=== PATIENT | male | born 1960 | race Caucasian/White ===

== ENCOUNTER 2017-07-06 11:35 | Observation (INO) | payer BC ==
[2017-07-06] MEDS ORDERED: Sodium Chloride 0.9% 1000 ML 1,000 ML IV STA (11:53)
[2017-07-06] MEDS ORDERED: Zofran 4 MG/2 ML VIAL IV PRN (11:53)
[2017-07-06 12:32] LABS: Mean Cell Volume 83.9 fl (78-100); Mean Platelet Volume 10.5 fl (6-9.5); Platelet Count 209 K/mm3 (150-450); Red Blood Count 5.59 M/mm3 (4.1-5.6); Red Cell Distribution Width 13.5 % (11.5-14.0); White Blood Count 10.7 K/mm3 (4.0-10.5)
[2017-07-06 12:44] LABS: ALBUMIN 4.3 g/dL (3.4-5.0); ALKALINE PHOSPHATASE 84 U/L (46-116); ANION GAP 10.9 MEQ/L (5-15); BLOOD UREA NITROGEN 19 mg/dL (9-20); CHLORIDE 109 mEq/L (98-107); Carbon Dioxide 26.2 mEq/L (21-32); Glucose 129 MG/DL (70-110); Potassium 3.8 mEq/L (3.5-5.1); SGOT/AST 11 U/L (15-37); SGPT/ALT 28 U/L (12-78); SODIUM 142 mEq/L (136-145); Total Protein 7.4 gm/dL (6.4-8.2)
[2017-07-06] MEDS: ENOXAPARIN SODIUM SQ SCH (12:47)
[2017-07-06] MEDS: Sodium Chloride 0.9% 1000 ML 1,000 ML IV SCH (12:48)
--- NOTE | 2017-07-06 14:51 | XRAY ---
Indication: Left flank pain. History of stones. Multiple contiguous axial images obtained through the abdomen and pelvis without contrast using renal stone protocol. Comparison: None Lung bases demonstrates moderate bibasilar dependent atelectasis. Heart is not enlarged. 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 Left ureter is distended up to 10 mm down to level of the distal ureter where there is a 7 mm calculus just proximal to UVJ. Left kidney also demonstrates mild hydronephrosis with additional punctate left renal calculi. No perinephric fluid. Also nonobstructing right renal calculi, largest 10 mm. Elsewhere subcentimeter hepatic calcified granuloma and previous cholecystectomy. Noncontrasted stomach and bowel loops appear nonobstructed. Normal appendix. Minimal sigmoid diverticulosis. Remaining liver, pancreas, spleen, adrenal glands, bladder, and aorta appear unremarkable for noncontrast exam. Osseous structures intact with minimal degenerative changes throughout the spine. Tiny fatty right inguinal hernia. Right lower abdominal wall demonstrates minimal subcutaneous air bubbles presumed iatrogenic. Impression: 1. 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 Additional bilateral renal micro-calculi. 2. Incidental hepatic calcified granuloma, sigmoid diverticulosis, and tiny fatty right inguinal hernia. CT DI 22.61
[2017-07-06] MEDS: Flomax 0.4 MG PO SCH (15:25)
[2017-07-06 15:48] LABS: Bilirubin NEGATIVE (NEGATIVE); Blood 250 Ery/ul (0-5); COMPLETE URINE MICROSCOPIC? YES; Collection Type VOID; Epithelial Cells RARE /HPF (FEW); Glucose NEGATIVE (NEGATIVE); Leukocyte Esterase NEGATIVE (NEGATIVE); Mucus SLIGHT /HPF (NEGATIVE); WBC 0-2 /HPF (0-5)
[2017-07-06] MEDS: MORPHINE SULFATE 4 MG INJ IV PRN (17:36)
[2017-07-07] MEDS: Sodium Chloride 0.9% 1000 ML 1,000 ML IV SCH ×2 (01:21→11:36)
[2017-07-07] MEDS: MORPHINE SULFATE 4 MG INJ IV PRN (07:43)
[2017-07-07] MEDS: Flomax 0.4 MG PO SCH (07:48)
[2017-07-07] MEDS: ENOXAPARIN SODIUM SQ SCH (07:51)
[2017-07-07 12:06] VITALS: BP 124/65; PULSE 84; O2SAT 95
--- NOTE | 2017-07-07 12:18 | XRAY ---
Indication: Follow-up distal left ureteral calculus. Multiple contiguous axial images obtained through the abdomen and pelvis without contrast using renal stone protocol. Comparison: One day earlier. Lung bases again demonstrates moderate bibasilar dependent atelectasis. Heart is not enlarged. There is stable 7 mm calculus in the distal left ureter just proximal to UVJ. Proximal left ureter remains prominent up to 10 mm with also stable mild hydronephrosis. No perinephric fluid. Stable bilateral renal micro-calculi, hepatic calcified granuloma, and previous cholecystectomy. Noncontrasted stomach and bowel loops appear nonobstructed again with minimal sigmoid diverticulosis. Normal appendix. Remaining liver, pancreas, spleen, adrenal glands, bladder, and aorta remain unremarkable for noncontrast exam. Osseous structures intact with again minimal degenerative changes throughout the spine. Stable tiny fatty right inguinal hernia. Impression: 1. There has been no change in the 7 mm distal left ureteral calculus producing partial obstruction. Also stable bilateral renal micro-calculi. 2. Stable hepatic calcified granuloma, sigmoid diverticulosis, and tiny fatty right inguinal hernia. CT DI 22.79
== END 2017-07-07 13:41 | disposition home or self-care (01) ==
LOC: MED SURG 11:35
PROVIDERS: ADMIT General Practice; ATTEND General Practice
DX: N23 Unspecified renal colic (principal); G47.30 Sleep apnea, unspecified; M19.90 Unspecified osteoarthritis, unspecified site
CPT/HCPCS: 36415; 74176; 80053; 81000; 85027; 87631; G0378; J1650; J2270; J2405; A9270-GY

== ENCOUNTER 2019-04-04 14:33 | Day surgery (SDC) | payer BC ==
[2019-04-04] MEDS ORDERED: Sodium Chloride 0.9(Preservative Free) 10 ML IJ ONE (14:34)
[2019-04-04] MEDS ORDERED: Xylocaine 1% Vial 30 ML PF IJ ONE (14:34)
[2019-04-04] MEDS ORDERED: Depo-Medrol 40 MG/ML IM ONE (14:34)
--- NOTE | 2019-04-04 16:40 | XRAY ---
Indication: Lumbar CARMINA. Intraoperative fluoroscopy was provided for 14 seconds. 2 digital spot images submitted for interpretation demonstrates midline needle tip just posterior to the thoracolumbar junction interspace. Small amount of contrast injected for needle tip placement. Correlate with intraoperative findings/report.
--- NOTE | 2019-04-04 16:56 | XRAY ---
14 seconds fluoroscopy time in surgery for lumbar CARMINA.
== END 2019-04-04 16:13 | disposition home or self-care (01) ==
LOC: SDC-PAIN 14:33
PROVIDERS: ATTEND Psychiatry & Neurology Pain Medicine
DX: M54.16 Radiculopathy, lumbar region (principal); N40.0 Benign prostatic hyperplasia without lower urinary tract symptoms; Z79.899 Other long term (current) drug therapy
CPT/HCPCS: 62323; 72100; 77003; J1030; J2001; Q9966

== ENCOUNTER 2021-11-18 15:33 | Day surgery (SDC) | payer BC ==
[2021-11-18] MEDS ORDERED: Depo-Medrol 40 MG/ML IM ONE (15:34)
[2021-11-18] MEDS ORDERED: Xylocaine 1% Vial 30 ML PF IJ ONE (15:34)
[2021-11-18] MEDS ORDERED: BUPIVACAINE 0.5% VIAL IJ ONE (15:34)
--- NOTE | 2021-11-18 20:04 | XRAY ---
Indication: Right knee injection. Intraoperative fluoroscopy provided for 18 seconds. Single digital spot image submitted for interpretation demonstrates needle tip projecting over the right femur intercondylar notch. Small amount of contrast injected for needle tip placement. Correlate with intraoperative findings/report. Incidental partially visualized proximal tibial orthopedic screws.
--- NOTE | 2021-11-19 09:41 | XRAY ---
18 seconds of fluoroscopy was used in surgery for a right knee intra-articular injection.
== END 2021-11-18 18:25 | disposition home or self-care (01) ==
LOC: SDC-PAIN 15:33
PROVIDERS: ATTEND Psychiatry & Neurology Pain Medicine
DX: M17.11 Unilateral primary osteoarthritis, right knee (principal); Z79.899 Other long term (current) drug therapy
CPT/HCPCS: 20610; 73560; 77002; J1030; J2001; Q9966